=== PATIENT | male | born 1960 | race Hispanic/Latino ===

== ENCOUNTER 2018-09-09 16:47 | Emergency (ER) | payer BC ==
[2018-09-09] MEDS ORDERED: ORPHENADRINE CITRATE 30 MG/ML ML ONE (17:01)
[2018-09-09] MEDS ORDERED: ACETAMINOPHEN EXTRA STRENGTH 500 MG TABLET ONE (17:01)
[2018-09-09 17:17] LABS: BASOPHILS % (AUTO) 0.6 % (0.0-5.0); EOSINOPHILS % (AUTO) 2.6 % (0.0-8.0); HEMATOCRIT 38.7 % (42-54); LYMPHOCYTES % (AUTO) 34.9 % (21.0-51.0); MEAN CORPUSCULAR HEMOGLOBIN 33.8 pg (27.0-33.0); MEAN CORPUSCULAR HGB CONC 35.8 g/dL (32.0-36.0); MEAN CORPUSCULAR VOLUME 94.5 fL (79-99); MONOCYTES % (AUTO) 8.3 % (3.0-13.0); NEUTROPHILS % (AUTO) 53.6 % (40.0-77.0); NUCLEATED RED BLOOD CELLS 0.1 % (0.0-0.19); PLATELET COUNT (AUTO) 226 K/uL (130-400); RED CELL DISTRIBUTION WIDTH 12.7 % (11.0-15.5); WHITE BLOOD COUNT (AUTO) 5.9 K/uL (4.8-10.8)
[2018-09-09 17:21] LABS: POTASSIUM 4.1 mmol/L (3.5-5.1)
[2018-09-09 17:25] LABS: ALBUMIN 3.6 g/dL (3.5-5.0); BILIRUBIN,TOTAL 0.4 mg/dL (0.2-1.0); TOTAL PROTEIN, SERUM 6.8 g/dL (6.0-8.3)
== END 2018-09-09 18:46 | disposition home or self-care (01) ==
LOC: EDH 16:47
DX: S16.1XXA Strain of muscle, fascia and tendon at neck level, initial encounter (principal); S20.212A Contusion of left front wall of thorax, initial encounter; S20.211A Contusion of right front wall of thorax, initial encounter; S50.811A Abrasion of right forearm, initial encounter; M54.5 Low back pain; E11.9 Type 2 diabetes mellitus without complications; E78.5 Hyperlipidemia, unspecified; I10 Essential (primary) hypertension; V69.49XA Driver of heavy transport vehicle injured in collision with other motor vehicles in traffic accident, initial encounter; Y93.89 Activity, other specified; Y92.89 Other specified places as the place of occurrence of the external cause; Y99.8 Other external cause status
CPT/HCPCS: 36415; 71045; 80053; 82550; 84484; 85025; 93005; 96372; 99285; J2360

== ENCOUNTER → 2022-08-04 | Outpatient (CLI) | payer MEDICARE ==
[~2022-08-04] MED LIST: ATOR20TA65 PO; LISI5TAB21 PO; METF-446 PO
== END | disposition home or self-care (01) ==
LOC: SHCH 09:07
PROVIDERS: ATTEND Internal Medicine
DX: I51.7 Cardiomegaly (principal); R07.9 Chest pain, unspecified
CPT/HCPCS: 93306

== ENCOUNTER → 2022-08-10 | Outpatient (CLI) | payer MEDICARE ==
[2022-08-10 12:23] LABS: CREATININE 0.8 mg/dL (0.5-1.5)
== END | disposition home or self-care (01) ==
LOC: LAB 10:07
PROVIDERS: ATTEND Internal Medicine
DX: I10 Essential (primary) hypertension (principal); R07.2 Precordial pain; R06.09 Other forms of dyspnea
CPT/HCPCS: 36415; 82565; 84520

== ENCOUNTER → 2022-09-03 | Outpatient (CLI) | payer MEDICARE ==
[~2022-09-03] MED LIST changes: +IOHEXOL 350 MG/ML 100ML INFUS..BTL IV ONE
== END | disposition home or self-care (01) ==
LOC: RAH 09:54
PROVIDERS: ATTEND Internal Medicine
DX: R06.09 Other forms of dyspnea (principal); R07.2 Precordial pain; M47.815 Spondylosis without myelopathy or radiculopathy, thoracolumbar region
CPT/HCPCS: 75574; Q9967

== ENCOUNTER → 2023-09-17 | Outpatient (CLI) | payer OTHER ==
[~2023-09-17] MED LIST changes: -IOHEXOL 350 MG/ML 100ML INFUS..BTL IV ONE
[2023-09-17 22:49] VITALS: PULSE 57; RESP 14
[2023-09-17 23:03] VITALS: PULSE 52; RESP 12
[2023-09-17 23:18] VITALS: PULSE 54; RESP 14
[2023-09-17 23:31] VITALS: PULSE 53; RESP 17
[2023-09-17 23:55] VITALS: PULSE 53; RESP 17
[2023-09-18] VITALS (10 sets, daily range): PULSE 49–64; RESP 8–26
== END | disposition home or self-care (01) ==
LOC: SLP 20:08
PROVIDERS: ATTEND Internal Medicine
DX: G47.30 Sleep apnea, unspecified (principal)
CPT/HCPCS: 95811

== ENCOUNTER 2025-03-02 12:27 | Emergency (ER) | payer OTHER ==
[~2025-03-02] VITALS: Ht 170.2 cm; Wt 97.5 kg
--- NOTE | 2025-03-02 12:33 | ERN ---
ED Note History of Present Illness Stated Complaint: COUGH Chief Complaint: Cough Time Seen by MD: 12:30 Dictation: PATIENT IS A 65-YEAR-OLD MALE COMING IN TODAY WITH COMPLAINTS OF FLU-LIKE SYMPTOMS COOL INCLUDE MILD SORE THROAT, CLEAR RHINITIS AND COUGH HE HAS HAD SINCE February. HE DENIES FEVER CHILLS NAUSEA VOMITING. NO CHEST PAIN. HE HAS NOT BEEN TO SEE HIS PRIMARY CARE DOCTOR AND STATES HE HAD REUNITED WITH FAMILY OVER THE HOLIDAYS AND TWO OF THEM WERE SICK WITH THE SAME SYMPTOMS HE SAYS I THINK I MAY HAVE COVID Allergies: Coded Allergies: No Known Allergies (Verified Allergy, Unknown, 11/14/20) Home Meds Reported Medications Atorvastatin Calcium (Atorvastatin Calcium) 20 Mg Tablet, 20 MG PO HS, TAB 11/17/20 Lisinopril (Lisinopril) 5 Mg Tablet, 5 MG PO AM, TAB 11/17/20 Metformin HCl (Metformin HCl) 1,000 Mg Tablet, 1000 MG PO BID, TAB 11/17/20 Past Medical History RN Note Reviewed/Agreed w/PFSH: Yes Review of System Dictation CONSTITUTIONAL: NEGATIVE EXCEPT FOR HPI HEAD/FACE: NEGATIVE EXCEPT FOR HPI EENT: NEGATIVE EXCEPT FOR HPI CLEAR RHINITIS WITH SORE THROAT RESPIRATORY: NEGATIVE EXCEPT FOR HPI PERSISTENT DRY COUGH GASTROINTESTINAL/ABDOMINAL: NEGATIVE EXCEPT FOR HPI GENITOURINARY: NEGATIVE EXCEPT FOR HPI MUSCULOSKELETAL: NEGATIVE EXCEPT FOR HPI INTEGUMENTARY: NEGATIVE EXCEPT FOR HPI NEUROLOGICAL/PSYCH: NEGATIVE EXCEPT FOR HPI HEMATOLOGIC/LYMPHATIC: NEGATIVE EXCEPT FOR HPI ALL SYSTEMS NEGATIVE, EXCEPT NOTED ABOVE. 13 POINT REVIEW OF SYSTEMS ASSESSED AND ALL NEGATIVE EXCEPT FOR ABOVE. Initial Vital Sign VS Vital Signs Date Time Temp Pulse Resp B/P (MAP) Pulse Ox O2 Delivery O2 Flow Rate FiO2 03/02/25 12:29 102.0 97 20 115/77 99 Room Air 03/02/25 13:40 0 21 Physical Exam Dictation VITAL SIGNS REVIEWED GENERAL APPEARANCE: ALERT, ORIENTED X 3, NO ACUTE DISTRESS, WELL DEVELOPED, NOURISHED. HEAD AND FACE: NON-TRAUMATIC. EYES: PERRL, PINK CONJUNCTIVAS, EYELID NO TRAUMA, ANTERIOR CHAMBER WITH ARCUS SENILIS. EARS: PINNAS INTACT AND NO SIGNS OF TRAUMA OR ERYTHEMA EAR CANALS CLEAR AND NO DISCHARGE TM NO ERYTHEMA NOSE: N CLEAR DISCHARGE, NO BLEEDING. OROPHARYNX: MOUT MILD PHARYNGEAL ERYTHEMA, TONSILS NO EXUDATES, NO ABSCESSES NOTED, MUCOUS MEMBRANE MOIST UVULA MIDLINE, VOICE IS CLEAR NECK: SUPPLE, NON-TENDER, NO THYROMEGALY, NO MASSES, NO JVD, NO BRUITS BREAST:DEFERRED CHEST:NO TENDERNESS, NO CREPITUS, NO PARADOXICAL MOVEMENT, NO RETRACTIONS LUNGS:CLEAR, WELL-VENTILATED, SYMMETRIC, NO RALES, NO WHEEZING, NO RHONCHI, NO STRIDOR, GOOD BREATH SOUNDS BILATERALLY HEART: REGULAR RATE, REGULAR RHYTHM, NO MURMUR, NO GALLOPS VASCULAR: NO PERIPHERAL EDEMA, ABDOMEN: SOFT, POSITIVE BOWEL SOUNDS, NONDISTENDED, NO GUARDING, NONTENDER, NO REBOUND, NO MASSES NO HEPATOMEGALY, NO SPLENOMEGALY, NO ANDERSON'S SIGN, NO HERNIAS. RECTAL: DEFERRED GENITAL: DEFERRED NEUROLOGICAL: NORMAL SPEECH, MOTOR FUNCTION INTACT, SENSORY FUNCTION INTACT MUSCULOSKELETAL: NECK NONTENDER, FULL RANGE OF MOTION, BACK NONTENDER, FULL RANGE OF MOTION, EXTREMITIES: NONTENDER, FULL RANGE OF MOTION SKIN: COLOR PINK, DRY, NO TURGOR, NO RASH, NO LACERATIONS, NO ABRASIONS, NO CONTUSIONS. LYMPHATIC: DEFERRED Results (Laboratory/Radiology) Laboratory/Radiology Laboratory Tests Test 03/02/25 13:50 Influenza Type A Antigen Positive For Type A Influenza Type B Antigen Negative For Type B SARS-CoV-2 Antigen (Rapid) PRESUMPTIVE NEGATIVE XAM: CR Chest, 1 View. CLINICAL HISTORY: COUGH, SEVEN DAYS COMPARISON: CR - CHEST 1VW - 11/19/20 01:28 EDT FINDINGS: LUNGS: There is no mass, infiltrate, or acute pulmonary abnormality. PLEURAL SPACES: No pleural effusion or pneumothorax. MEDIASTINUM: The cardiomediastinal silhouette is within normal limits. BONES: No aggressive appearing osseous lesion seen. IMPRESSION: No acute cardiopulmonary pathology is evident. /[facility] Reviewed?: Yes ED Course ED Course Orders Procedure Category Date Status Time Covid19 (Sars Antigen LAB 03/02/25 Complete Rapid) 12:30 Influenza Type A & B, LAB 03/02/25 Complete Rapid 12:30 Dexamethasone 4mg/Ml PHA 03/02/25 Complete 1ml Vial (Dexametha 12:30 Ibuprofen 800 Mg Tab PHA 03/02/25 Complete (Motrin) 13:00 Chest 1vw RAD 03/02/25 Resulted 12:46 Rapid (Group A Strep) LAB 03/02/25 Logged 14:24 Current Medications Medications (Trade) Dose Ordered Sig/Martita Route PRN Reason Start Time Stop Time Status Last Admin Dose Admin Dexamethasone Sodium Phosphate (dexaMETHasone 4MG/ML 1ML VIAL) 8 mg ONCE ONCE IM 03/02/25 12:30 03/02/25 12:32 DC 03/02/25 14:02 Ibuprofen (moTRIN) 800 mg ONCE ONCE PO 03/02/25 13:00 03/02/25 13:01 DC 03/02/25 14:01 Vital Signs Date Time Temp Pulse Resp B/P (MAP) Pulse Ox O2 Delivery O2 Flow Rate FiO2 03/02/25 14:01 99.1 03/02/25 13:40 99.1 94 20 121/72 97 Room Air* 0 21 03/02/25 12:29 102.0 97 20 115/77 99 Room Air Medical Decision Making MDM 1440/medical decision-making based on chest x-ray and swabs for flu and COVID. Patient positive for influenza A Negative for SARS COVID and chest x-ray clear Discharged home with cough suppressant Tamiflu and told to see his primary care DX & DISP Disposition: Discharge Departure Impression: Primary Impression: Influenza A Additional Impression: Cough Condition: Stable Scripts Methylprednisolone (Medrol) 4 Mg Tab.ds.pk 1 TAB PO AD for 6 Days, #21 TAB 0 Refills 6 on day 1 then reduce by one tablet daily until gone Prov: AMY LAMBERT WOOL CARDER 03/02/25 Benzonatate (Tessalon Perles) 100 Mg Cap 200 MG PO TID for cough, #40 CAP 0 Refills Prov: AMY LAMBERT WOOL CARDER 03/02/25 Oseltamivir Phosphate (Tamiflu) 75 Mg Cap 1 CAP PO BID for 5 Days, #10 CAP 0 Refills Prov: AMY LAMBERT WOOL CARDER 03/02/25 Additional Instructions: Follow-up with primary care provider in 1 to 2 days. Take medications as directed here in the emergency room. Okay to continue home medications unless otherwise discussed during your visit in the emergency room today. Return to your nearest emergency room if symptoms worsen or if there is no improvement. Call 911 if you need immediate assistance. Take Tylenol or Motrin [id number] as needed and if no contraindications are present. Increase oral hydration. A wound culture or urine culture was ordered here in the emergency room department please follow-up with primary care provider and advise them to get repeat ports from our facility. If you had any Alex wrap/splints that were applied here, please do not remove them until you see your primary care or specialty. Take Tamiflu as directed until gone. Take Tylenol or Motrin [id number] as needed for fever pain. Increase your water intake. Take Medrol Dosepak as directed until gone. See your primary care doctor for follow up in the next 2-3 days. Referrals: DARCI CLARK (PCP) Time of Disposition: 14:40 I have reviewed the case, and I agree with, Diagnosis and Plan AMY LAMBERT WOOL CARDER Mar 02, 2025 12:33
[2025-03-02 14:01] VITALS: TEMP 99.2
--- NOTE | 2025-03-02 14:17 | HMCIMG ---
EXAM: CR Chest, 1 View. CLINICAL HISTORY: COUGH, SEVEN DAYS COMPARISON: CR - CHEST 1VW - 11/19/20 01:28 EDT FINDINGS: LUNGS: There is no mass, infiltrate, or acute pulmonary abnormality. PLEURAL SPACES: No pleural effusion or pneumothorax. MEDIASTINUM: The cardiomediastinal silhouette is within normal limits. BONES: No aggressive appearing osseous lesion seen. IMPRESSION: No acute cardiopulmonary pathology is evident. /[place]
[2025-03-02 14:18] LABS: INFLUENZA TYPE B Negative For Type B (NEGATIVE)
[2025-03-02 14:21] LABS: COVID19 (SARS ANTIGEN RAPID) PRESUMPTIVE NEGATIVE (NEGATIVE)
[2025-03-02 14:22] LABS: INFLUENZA TYPE A Positive For Type A (NEGATIVE)
[2025-03-02] MEDS ORDERED: BENZ-39 PO (14:40)
[2025-03-02] MEDS ORDERED: METH4TAB3 PO (14:40)
[2025-03-02] MEDS ORDERED: OSEL75 PO (14:40)
[2025-03-02 14:56] VITALS: BP 97/58; PULSE 71; RESP 18; TEMP 98.7; O2SAT 96
== END 2025-03-02 15:18 | disposition home or self-care (01) ==
LOC: EDH 12:27
DX: J10.1 Influenza due to other identified influenza virus with other respiratory manifestations (principal); R05.9 Cough, unspecified; Z20.822 Contact with and (suspected) exposure to COVID-19; Z79.84 Long term (current) use of oral hypoglycemic drugs
CPT/HCPCS: 99284; 71045; 87426; 87804 ×2; 96372; J1100; 99283